=== PATIENT | female | born 1985 | race Two or more races ===

== ENCOUNTER 2016-08-18 18:47 | Emergency (ER) | payer MEDICAID ==
[2016-08-18] MEDS ORDERED: IOPAMIDOL 370 (76%) IV.SOLN 150 ML IV ONE (18:48)
[2016-08-18] MEDS ORDERED: ONDANSETRON 4 MG/2ML 2 ML VIAL ONE (19:34)
[2016-08-18] MEDS ORDERED: KETOROLAC TROMETHAMINE 30 MG/ML 1 ML VIAL ONE (19:34)
[2016-08-18 19:38] LABS: ABSOLUTE NEUTROPHIL COUNT 2.6 K/mm3 (1.8-7.7); BASO % 0.5 % (0.2-1.0); EOS # 0.1 (0.0-0.5); HEMATOCRIT 37.1 % (37.0-47.0); HEMOGLOBIN 12.5 gm/l (12.0-16.0); IMM NEUT% 0.2 % (0-1); LYMPH # 2.8 (1.0-4.8); LYMPH % 46.3 % (15-45); MEAN CELL VOLUME 95.1 fl (81.0-99.0); MEAN CORPUSCULAR HEMOGLOBIN 32.1 pg (27.0-31.0); MEAN CORPUSCULAR HGB CONC 33.7 g/dl (33.0-37.0); MEAN PLATELET VOLUME 11.4 fl (7.4-10.4); MONO # 0.5 (0.0-0.8); MONO % 7.7 % (4-12); NEUT % 44.3 % (43-75); PLATELET COUNT 165 K/mm3 (130-400); RED CELL DISTRIBUTION WIDTH 11.4 % (11.5-14.5)
[2016-08-18 19:51] LABS: ALB/GLOB RATIO 1.4 (>1.0); ALBUMIN 4.1 gm/dL (3.5-5.7)
[2016-08-18 19:52] LABS: PH,URINE 6.5 (5.0-8.0); SPECIFIC GRAVITY 1.015 (1.001-1.030); URINE BILIRUBIN NEGATIVE (NEGATIVE); URINE BLOOD 2+ (NEGATIVE); URINE GLUCOSE (UA) NEGATIVE (NEGATIVE); URINE LEUKOCYTE ESTERASE NEGATIVE (NEGATIVE); URINE NITRITE NEGATIVE (NEGATIVE); URINE PROTEIN NEGATIVE (NEGATIVE); URINE UROBILINOGEN NORMAL (0-1 mg/dl)
[2016-08-18 19:53] LABS: URINE APPEARANCE CLEAR; URINE COLOR LIGHT YELLOW
[2016-08-18 20:00] LABS: URINE EPITHELIAL CELLS 0-3 /hpf; URINE WBC 0-1 /hpf
[2016-08-18 20:01] LABS: URINE BACTERIA RARE
[2016-08-18 20:16] LABS: HCG,QUALITATIVE URINE NEGATIVE
--- NOTE | 2016-08-19 09:48 | CT ---
Exam: CT abdomen and pelvis with contrast COMPARISON: 07/04/2015, 12/29/2013 INDICATION: Right lower quadrant pain. Patient describes Low abdominal pain for 15 days. TECHNIQUE: CT examination of the abdomen and pelvis was obtained following the administration 125 mL Isovue-[id number] intravenous contrast. FINDINGS: High density material within the right lower quadrant is presumably related to appendectomy. The remainder of the bowel is unremarkable and there is no bowel obstruction or free air. There is a minimal amount of free fluid in the pelvis, within physiologic range. Uterus and ovaries are within normal limits. There is a 1.8 cm low-density lesion within the left ovary compatible with a dominant follicle. The liver, spleen, pancreas, kidneys, adrenal glands and gallbladder are unremarkable. Aside from some minor dependent atelectasis, the lung bases are clear. IMPRESSION: No acute findings identified to explain low abdominal pain. Post appendectomy. Preliminary report transmitted to the emergency department from [facility] at 0135 hours 08/19/2016
[2016-08-21 15:52] LABS: CHLAMYDIA BD Negative (Negative); N.GONORRHOEAE BD Negative (Negative); SOURCE Urine (())
== END 2016-08-18 22:22 | disposition home or self-care (01) ==
LOC: ED 18:47
DX: R10.30 Lower abdominal pain, unspecified (principal)
CPT/HCPCS: 83690; 87491; 87591; 81025; 85025; 80053; 81001; 74177; 96375; 99283; 96374; 99284; J1885; J2405; Q9967